=== PATIENT | female | born 1970 | race Caucasian/White ===

== ENCOUNTER 2024-10-21 13:24 | Outpatient (CLI) | payer MEDICAID, SELFPAY ==
[2024-10-24 01:41] LABS: HPV Source Cervical; HPV, High Risk by TMA Not Detected
== END 2024-10-21 13:25 | disposition home or self-care (01) ==
PROVIDERS: PCP Obstetrics & Gynecology; Visit Provider Obstetrics & Gynecology
DX: Z12.4 Encounter for screening for malignant neoplasm of cervix (principal)
CPT/HCPCS: 87491; 87591; 87624; 87625; 88141; 88142

== ENCOUNTER 2024-11-23 11:16 | Outpatient (CLI) | payer MEDICAID, SELFPAY ==
--- NOTE | 2024-11-23 11:30 | CRLHL7_ITS ---
For Patients: As a result of the Century Cures Act, medical imaging exams and procedure reports are released immediately into your electronic medical record. You may view this report before your referring provider. If you have questions, please contact your health care provider. INDICATION: polyp of cervix COMPARISON: none TECHNIQUE: 2D salas scale and color Doppler images were acquired of the pelvis using a transabdominal and transvaginal approach. FINDINGS: Sonographic images demonstrate a normal size and smooth outer contour of the uterus. Uterus measures 7.9 cm in length by 3.3 cm in AP diameter by 3.6 cm in transverse dimension. Hyperechoic and vascular structure within the endometrium measures 10 x 5 x 4 millimeters. Endometrial thickness 1 cm. No uterine fibroid. The right ovary measures 2.3 x 1.9 x 2.2 cm in size and the left ovary measures 2.5 x 1.0 x 2.4 cm. The ovaries demonstrate normal arterial and venous blood flow on color Doppler analysis. There are no suspicious fluid collections within the cul-de-sac. IMPRESSION: Endometrial polyp measuring 10 x 5 x 4 millimeters. Dictated by Dominic Paredes MD @ 11/23/2024 12:19:16 PM (Electronically Signed)
== END 2024-11-23 11:17 | disposition home or self-care (01) ==
LOC: US 11:17
PROVIDERS: PCP Obstetrics & Gynecology; Visit Provider Obstetrics & Gynecology
DX: N84.1 Polyp of cervix uteri (principal); N84.0 Polyp of corpus uteri; N92.6 Irregular menstruation, unspecified
CPT/HCPCS: 76830; 76856; 80061

== ENCOUNTER 2024-11-29 09:06 | Outpatient (CLI) | payer MEDICAID, SELFPAY ==
--- NOTE | 2024-11-29 10:56 | P.ANES_ITS ---
Anesthesia Charges Start Date/Time Anesthesia Start Date: 11/29/24 Anesthesia Start Time: 10:17 Stop Date/Time Anesthesia Stop Date: 11/29/24 Anesthesia Stop Time: 10:54 Coding CPT Codes CPT Codes: JONI LWR INTST NDAK NOS - 60077 ([id number]) P1 - NORMAL HEALTHY PATIENT, QK - MENTAL HEALTH ORDERLY 2-4 CNCRNT ANES PROC, QX - INTERNATIONAL COORDINATOR SVC W/ MED DIRECTION
--- NOTE | 2024-11-29 10:56 | W.ANESCHARGE ---
Anesthesia Charges Start Date/Time Anesthesia Start Date: 11/29/24 Anesthesia Start Time: 10:17 Stop Date/Time Anesthesia Stop Date: 11/29/24 Anesthesia Stop Time: 10:54 Coding CPT Codes CPT Codes: JONI LWR INTST NDOR NOS - 02702 ([id number]) P1 - NORMAL HEALTHY PATIENT, QK - YARN HANDLER 2-4 CNCRNT ANES PROC, QX - FIELD RING ASSEMBLER SVC W/ MED DIRECTION
--- NOTE | 2024-11-29 12:42 | P.ANES_ITS ---
Anesthesia Charges Start Date/Time Anesthesia Start Date: 11/29/24 Anesthesia Start Time: 10:17 Stop Date/Time Anesthesia Stop Date: 11/29/24 Anesthesia Stop Time: 10:54 Coding CPT Codes CPT Codes: JONI LWR INTST NDND NOS - 04685 ([id number]) P1 - NORMAL HEALTHY PATIENT, QK - ROLLER SETTER 2-4 CNCRNT ANES PROC, QX - PHARMACIST'S AIDE SVC W/ MED DIRECTION
--- NOTE | 2024-11-29 12:42 | W.ANESCHARGE ---
Anesthesia Charges Start Date/Time Anesthesia Start Date: 11/29/24 Anesthesia Start Time: 10:17 Stop Date/Time Anesthesia Stop Date: 11/29/24 Anesthesia Stop Time: 10:54 Coding CPT Codes CPT Codes: JONI LWR INTST NDAZ NOS - 82916 ([id number]) P1 - NORMAL HEALTHY PATIENT, QK - RAIL SWITCHMAN 2-4 CNCRNT ANES PROC, QX - INDEPENDENT DISTRIBUTOR SVC W/ MED DIRECTION
== END 2024-11-29 09:07 | disposition home or self-care (01) ==
LOC: OP CLINIC 09:07
PROVIDERS: PCP Obstetrics & Gynecology; Visit Provider Surgery
DX: Z12.11 Encounter for screening for malignant neoplasm of colon (principal); D12.2 Benign neoplasm of ascending colon; D12.8 Benign neoplasm of rectum
CPT/HCPCS: 00811; 00812; 45385; 88305; J2704

== ENCOUNTER 2024-12-07 18:40 | Outpatient (CLI) | payer MEDICAID, SELFPAY ==
--- NOTE | 2024-12-07 19:00 | CRLHL7_ITS ---
For Patients: As a result of the Century Cures Act, medical imaging exams and procedure reports are released immediately into your electronic medical record. You may view this report before your referring provider. If you have questions, please contact your health care provider. INDICATION: BILATERAL SCREENING MAMMOGRAM, ASYMPTOMATIC 58 Y/O FEMALE COMPARISON: 01/07/2024, 10/02/2022, 06/06/2021 TECHNIQUE: Digital mammogram in CC and MLO projections including computer-aided detection (CAD) and tomosynthesis. BREAST COMPOSITION: The breasts are almost entirely fatty. FINDINGS: No suspicious findings. ASSESSMENT: BI-RADS 1 Negative RECOMMENDATION: Annual screening mammogram. A lay language report of this examination will be provided to the patient. Dictated by: Dominic Paredes MD @ 01/12/2025 10:41:57 (Electronically Signed)
== END 2024-12-07 18:41 | disposition home or self-care (01) ==
LOC: MAMMO 18:40
PROVIDERS: PCP Obstetrics & Gynecology; Visit Provider Obstetrics & Gynecology
DX: Z12.31 Encounter for screening mammogram for malignant neoplasm of breast (principal)
CPT/HCPCS: 77063; 77067

== ENCOUNTER 2024-12-09 11:43 | Outpatient (CLI) | payer MEDICAID, SELFPAY | END 2024-12-09 11:44 | disposition home or self-care (01) | LOC: NFLDREF 12-21 07:05 | PROVIDERS: PCP Obstetrics & Gynecology; Referring Provider Obstetrics & Gynecology; Visit Provider Obstetrics & Gynecology | DX: N92.6 Irregular menstruation, unspecified (principal); Z83.49 Family history of other endocrine, nutritional and metabolic diseases | CPT/HCPCS: 84443 ==

== ENCOUNTER 2025-02-01 07:43 | Day surgery (SDC) | payer MEDICAID, SELFPAY ==
[2025-02-01 07:50] VITALS: BP 122/82; PULSE 67; RESP 16; TEMP 36.9; O2SAT 99; BMI 28.5
[2025-02-01 08:13] LABS: Ur HCG Qualitative* Negative (Negative)
[2025-02-01] MEDS: SODIUM CHLORIDE 0.9 % (FLUSH) 10 ML SYRINGE IVF (08:22)
[2025-02-01] MEDS: LACTATED RINGERS 1000 ML 1,000 ML 100 ML IV (08:22)
[2025-02-01 08:40] LABS: Hemoglobin* 13.2 gm/dL (12.0-16.0)
[2025-02-01 08:53] LABS: Creatinine* 0.7 mg/dL (0.5-1.5); Est. Creatinine Clearance* 79.34; Estimated Glomerular Filt Rate 103 ml/min
--- NOTE | 2025-02-01 11:20 | P.ANES_ITS ---
Anesthesia Charges Start Date/Time Anesthesia Start Date: 02/01/25 Anesthesia Start Time: 12:16 Stop Date/Time Anesthesia Stop Date: 02/01/25 Anesthesia Stop Time: 13:15 Coding CPT Codes CPT Codes: ANESTH HYSTEROSCOPE/GRAPH - 03187 ([id number]) P1 - NORMAL HEALTHY PATIENT, QK - FOUR CORNER FORMER MACHINE OPERATOR 2-4 CNCRNT ANES PROC, QX - STAFF FORESTER SVC W/ MED DIRECTION
--- NOTE | 2025-02-01 11:20 | W.ANESCHARGE ---
Anesthesia Charges Start Date/Time Anesthesia Start Date: 02/01/25 Anesthesia Start Time: 12:16 Stop Date/Time Anesthesia Stop Date: 02/01/25 Anesthesia Stop Time: 13:15 Coding CPT Codes CPT Codes: ANESTH HYSTEROSCOPE/GRAPH - 62211 ([id number]) P1 - NORMAL HEALTHY PATIENT, QK - APPRENTICE EMBALMER 2-4 CNCRNT ANES PROC, QX - STAFF GENETIC COUNSELOR SVC W/ MED DIRECTION
--- NOTE | 2025-02-01 12:16 | P.ANES_ITS ---
Anesthesia Charges Start Date/Time Anesthesia Start Date: 02/01/25 Anesthesia Start Time: 12:16 Stop Date/Time Anesthesia Stop Date: 02/01/25 Anesthesia Stop Time: 13:15 Coding CPT Codes CPT Codes: ANESTH HYSTEROSCOPE/GRAPH - 97614 ([id number]) P1 - NORMAL HEALTHY PATIENT, QK - PRESCHOOL SUBSTITUTE TEACHER 2-4 CNCRNT ANES PROC, QX - SPOT REMOVER SVC W/ MED DIRECTION
--- NOTE | 2025-02-01 12:16 | W.ANESCHARGE ---
Anesthesia Charges Start Date/Time Anesthesia Start Date: 02/01/25 Anesthesia Start Time: 12:16 Stop Date/Time Anesthesia Stop Date: 02/01/25 Anesthesia Stop Time: 13:15 Coding CPT Codes CPT Codes: ANESTH HYSTEROSCOPE/GRAPH - 36419 ([id number]) P1 - NORMAL HEALTHY PATIENT, QK - SUPERVISOR WET END 2-4 CNCRNT ANES PROC, QX - GLASSBLOWER SVC W/ MED DIRECTION
--- NOTE | 2025-02-01 12:22 | W.PM.H&PU ---
History & Physical Update History & Physical Update H&P Reviewed and patient assessed: No changes noted
[2025-02-01] MEDS: SILVER NITRATE APPLICATOR 1 EACH STICK..EA. TOPICAL (12:56)
[2025-02-01] MEDS: LIDOCAINE 1%-EPI 1:100,000 20 ML INFILTRATI (12:56)
--- NOTE | 2025-02-01 13:14 | P.GYNPRC_ITS ---
Procedure Note Time Seen by Provider: 13:14 Date of procedure: 02/01/25 Will [facility] bill your pro fee for this procedure?: Yes Procedure Description: Preoperative diagnosis: 55 year-old G0 with known endometrial polyps. She also has vulvar skin tags she would like removed as well. Postoperative diagnosis: Same Procedure: Hysteroscopy, dilation and curettage, and polypectomy. Anesthesia: Conscious sedation with paracervical block. Surgeon: Lissette Avila MD Estimated blood loss: 5 mL UOP: 5 cc Specimen: 1. Endometrial curettings/polyps to pathology 2. Right vulvar skin tag 3. Right groin/thigh skin tag Findings: Exam under anesthesia: 0.5 cm flesh colored skin tag on right labia majora and very small skin tag on right thigh near groin region. Cervix palpates normal. Uterus: anterior position, 6 week size, mobile, without nodularity/masses palpable. Adnexa were without fullness or nodularity. On hysteroscopy: One large polyp on left uterine side wall. Small polyp near right tubal ostia. Likely another polyp on posterior wall of uterus that is more sessile. Procedure: Tereza was taken to the operating where conscious sedation was found to be adequate. She was placed in the dorsal lithotomy position. An exam under anesthesia was performed with findings stated above. She was then prepped and draped in normal sterile manner. A bivalve metal speculum was placed in the vaginal canal. The cervix and vaginal canal appear normal. A paracervical block was placed using 1% lidocaine with epinephrine: 5 mL injected at the 4 and 8 o'clock positions on the cervix. The anterior lip of the cervix was then grasped with a long tenaculum. The cervix was dilated to Hegar 6. The uterus sounded to 7 cm. The hysteroscope advanced into the uterus and a diagnostic hysteroscopy was performed with findings stated above. Normal saline was used as the insufflation medium. Soft tissue shaver was used to perform polypectomy and global curetting. The uterus and documented a normal appearing uterine cavity at the end of the procedure. Fluid deficit at the end of the procedure 125 mL. Total fluid: 850 cc The hysteroscope and tenaculum clamp were removed from the uterus and cervix. Excellent hemostasis noted. Nothing was used for hemostasis. Attention was then turned towards, skin tag removal. 1 cc of lidocaine with epinephrine injected at the base of each skin tag (2 total). Picks used to elevated the skin that to expose the base. Metzenbaum used to excise the skin tag. One [id number] placed on the right labial skin tag removal site with 2-0 Vicryl. Silver nitrate applied to the right thigh/groin site due to very small in size. Bacitracin placed on both sites. The patient tolerated the procedure well. Sponge, lap and instruments counts were correct at the end of the procedure. The patient was awakened from anesthesia and taken to the recovery area in stable condition. Surgical debrief performed and specimen reviewed at the end of the procedure.
[2025-02-01 13:15] VITALS: BP 111/81; PULSE 83; RESP 16; TEMP 36.6; O2SAT 98
[2025-02-01 13:30] VITALS: BP 115/73; PULSE 54; RESP 14; O2SAT 99
[2025-02-01 13:45] VITALS: BP 117/61; PULSE 60; RESP 16; O2SAT 99
== END 2025-02-01 13:58 | disposition home or self-care (01) ==
PROVIDERS: Anesthesiology; PCP Obstetrics & Gynecology; Visit Provider Obstetrics & Gynecology
PROC: 0UDB8ZZ Extraction of Endometrium, Via Natural or Artificial Opening Endoscopic (ICD-10-PCS; CPT 58558; principal; 2025-02-01 10:30)
DX: N84.0 Polyp of corpus uteri (principal); L91.8 Other hypertrophic disorders of the skin; N90.89 Other specified noninflammatory disorders of vulva and perineum
CPT/HCPCS: 58558; 11200; 00952; 36415; 81025; 82565; 85018; 86850; 86900; 86901; A9270; C1782; J1100; J1885; J2405; J2704; J3490; J7120